=== PATIENT | male | born 1970 | race Hispanic/Latino ===

== ENCOUNTER 2018-08-11 17:02 | Emergency (ER) | payer OTHER ==
[2018-08-11] MEDS ORDERED: KETOROLAC TROMETHAMINE 30MG/ML ONE (17:38)
== END 2018-08-11 19:09 | disposition home or self-care (01) ==
LOC: EDH 17:02
DX: M25.561 Pain in right knee (principal); I10 Essential (primary) hypertension
CPT/HCPCS: 73562; 93971; 96372; 99284; J1885

== ENCOUNTER 2021-12-30 09:33 | Day surgery (SDC) | payer OTHER ==
[2021-12-29 09:57] LABS: BASOPHILS % (AUTO) 0.8 % (0.0-5.0); LYMPHOCYTES % (AUTO) 34.8 % (21.0-51.0); MEAN CORPUSCULAR HEMOGLOBIN 29.1 pg (27.0-33.0); MEAN CORPUSCULAR VOLUME 88.4 fL (79-99); MONOCYTES % (AUTO) 13.4 % (3.0-13.0); NEUTROPHILS % (AUTO) 47.8 % (40.0-77.0); PLATELET COUNT (AUTO) 223 K/uL (130-400); RED BLOOD CELL COUNT(AUTO) 4.98 MIL/uL (4.50-6.20); RED CELL DISTRIBUTION WIDTH 14.1 % (11.0-15.5); WHITE BLOOD COUNT (AUTO) 5.3 K/uL (4.8-10.8)
[2021-12-29 10:05] LABS: POTASSIUM 3.7 mmol/L (3.5-5.1)
[2021-12-29 12:53] VITALS: BP 176/87
[~2021-12-30] VITALS: Ht 170.2 cm; Wt 130.0 kg
[2021-12-30] VITALS (17 sets, daily range): BP systolic 138–172; BP diastolic 77–101
[~2021-12-30 09:33] MED LIST: ACET325T51 PO; AEC81 PO; ASCO500C18 PO; CEFAZOLIN SODIUM 3 GM in DEXTROSE 5%-WATER 100 ML IVP SCH; IBUP-2077 PO; LISI20TA24 PO
[2021-12-30] MEDS ORDERED: CEFAZOLIN SODIUM 1 GM VIAL ONE ×2 (10:10→11:52)
[2021-12-30] MEDS ORDERED: 0.9%NACL 1000ML 1,000 ML IV ONE (10:10)
[2021-12-30] MEDS ORDERED: PROPOFOL 10 MG/ML 20ML VIAL IV ONE ×2 (11:53→14:45)
[2021-12-30] MEDS ORDERED: LIDOCAINE PF 100MG/5ML (2%) SYRINGE 5ML ONE (11:53)
[2021-12-30] MEDS ORDERED: NEOSTIGMINE 5MG/5ML SYR IV ONE (11:53)
[2021-12-30] MEDS ORDERED: MIDAZOLAM HCL 1 MG/ML 2ML VIAL ONE (11:53)
[2021-12-30] MEDS ORDERED: SUCCINYLCHOLINE 200MG/10ML SYR ONE (11:53)
[2021-12-30] MEDS ORDERED: GLYCOPYRROLATE 1 MG/5 ML SYRINGE ONE (11:53)
[2021-12-30] MEDS ORDERED: FENTANYL CITRATE PF 50 MCG/1 ML 2ML VIAL ONE (11:54)
[2021-12-30] MEDS ORDERED: ROCURONIUM 10MG/1ML SYR 10 MG/ML ML ONE (12:31)
[2021-12-30] MEDS ORDERED: ONDANSETRON 4MG INJ ONE ×2 (14:10→15:32)
[2021-12-30] MEDS ORDERED: IBUP-2077 PO (14:31)
[2021-12-30] MEDS ORDERED: HYDR-4060 PO (14:31)
[2021-12-30] MEDS ORDERED: CEPH500B PO (14:31)
[2021-12-30] MEDS ORDERED: KETOROLAC 30MG VIAL (30MG/ML) ONE (15:33)
[2021-12-30] MEDS ORDERED: MEPERIDINE-PF 25 MG/ML SYG ONE (15:33)
== END 2021-12-30 17:00 | disposition home or self-care (01) ==
LOC: DAH 09:33
PROVIDERS: ATTEND Orthopaedic Surgery
DX: S46.012A Strain of muscle(s) and tendon(s) of the rotator cuff of left shoulder, initial encounter (principal); M25.512 Pain in left shoulder; I10 Essential (primary) hypertension; G47.30 Sleep apnea, unspecified; K21.9 Gastro-esophageal reflux disease without esophagitis; M19.90 Unspecified osteoarthritis, unspecified site; E66.9 Obesity, unspecified; E11.9 Type 2 diabetes mellitus without complications; Z79.01 Long term (current) use of anticoagulants; Z79.899 Other long term (current) drug therapy; Z79.82 Long term (current) use of aspirin; Z98.890 Other specified postprocedural states; Z87.891 Personal history of nicotine dependence; Z82.49 Family history of ischemic heart disease and other diseases of the circulatory system; Z83.3 Family history of diabetes mellitus; X58.XXXA Exposure to other specified factors, initial encounter; Y93.89 Activity, other specified; Y92.89 Other specified places as the place of occurrence of the external cause; Z68.41 Body mass index [BMI] 40.0-44.9, adult
CPT/HCPCS: 23130; 23410; 36415; 64415; 76942; 80048; 82948 ×2; 85025; 87635; A4215; A4221; A4222; A4223; A4565; A4600; A4657; A4663; A5120; A6204; C1713 ×2; C9803; G0168; J0330; J0690 ×2; J1885; J2001; J2175; J2250; J2405 ×2; J2704 ×2; J2710; J3010; J3490; J7030; J7120; J7060

== ENCOUNTER 2024-09-13 17:11 | Emergency (ER) | payer OTHER ==
[~2024-09-13] VITALS: Ht 170.2 cm; Wt 117.9 kg
[~2024-09-13 17:11] MED LIST changes: +ACET-3859 PO; -ACET325T51 PO; -CEFAZOLIN SODIUM 3 GM in DEXTROSE 5%-WATER 100 ML IVP SCH; +CEPH500B PO; +HYDR-4060 PO
[2024-09-13] MEDS: acetaMINOPHEN 500 MG TABLET PO SCH (17:19)
--- NOTE | 2024-09-13 17:31 | ERN ---
ED Note History of Present Illness Stated Complaint: FEVER,BODY ACHES Chief Complaint: Fever Time Seen by MD: 17:11 Time Seen by Midlevel: 17:11 Dictation: 54-year-old male who presents ED for evaluation of flu-like symptoms onset 2 days. Patient reports cough, congestion, fever chills, body aches. Patient reports she took ibuprofen earlier today. Reports is also sick with similar symptoms. Denies abdominal pain, nausea, vomiting, chest pain, shortness of breath Allergies: Coded Allergies: No Known Allergies (Verified Allergy, Unknown, 12/29/21) Home Meds Active Scripts Ibuprofen (Ibuprofen 800 mg Tab) 800 Mg Tab, 800 MG PO Q8H PRN for PAIN, #60 TAB 1 Refill Prov:LUIS LYONS MD 12/30/21 Cephalexin Monohydrate (Keflex) 500 Mg Cap, 500 MG PO Q8H for 2 Days, #7 CAP 0 Refills Prov:LUIS LYONS MD 12/30/21 Hydrocodone/Acetaminophen (Hydrocodon-Acetaminophen 5-325) 1 Each Tablet, 1-2 EACH PO Q6HPRN PRN for ACUTE POST-OP PAIN (G89.18), #56 TAB 0 Refills Prov:LUIS LYONS MD 12/30/21 Reported Medications Aspirin (ASPIRIN 81 MG ECTAB) 81 Mg Ectab, 81 MG PO HS, TAB.EC 12/29/21 Ascorbic Acid (Vitamin C) 500 Mg Capsule, 500 MG PO BID, CAP 12/29/21 Lisinopril (Lisinopril) 20 Mg Tablet, 20 MG PO HS, TAB 12/29/21 Acetaminophen (Acetaminophen) 325 Mg Tablet, 650 MG PO AD PRN for PAIN LEVEL 4 TO 6, TAB 12/29/21 Past Medical History Past Medical History: Diabetes-Type II, High Cholesterol, Heart Disease, Hypertension Surgical History: Other Surgical History Other: SHOULDER SURGERY RN Note Reviewed/Agreed w/PFSH: Yes Review of System Dictation Constitutional: Negative for weight loss Eyes: Negative for injury, pain,redness, and discharge ENT: Negative for injury,pain or swelling Cardiovascular: Negative for chest pain, palpitations, and edema Respiratory: Negative for shortness of breath, and wheezing, Abdomen/GI: Negative for abdominal pain, nausea, vomiting, diarrhea, and constipation Back: Negative for injury and pain : Negative for injury, bleeding and discharge MS/Extremity: Negative for injury and deformity Skin: Negative for rash, and discoloration Neuro: Negative for headache, weakness, numbness, tingling, and seizure Psych: Negative for suicide ideation, homicidal ideation, and hallucinations Review of Systems: was completed Initial Vital Sign VS Vital Signs Date Time Temp Pulse Resp B/P (MAP) Pulse Ox O2 Delivery O2 Flow Rate FiO2 09/13/24 17:16 103.1 118 20 149/96 98 Room Air 0 09/13/24 17:27 21 Physical Exam Dictation General: awake, alert, NAD Head/Face: Normocephalic, atraumatic Eyes: PERRL, EOMI, vision at baseline ENT: oral cavity clear, TMs clear, no signs of infection Neck: Trachea midline, supple, no nuchal rigidity Cardiovascular: RRR, normal S1/S2, No MRGs, no JVD Respiratory: CTAB, no respiratory distress, No rales or wheezes Abdomen: Soft, non-tender, non-distended, normal bowel sounds, no guarding or rebound. Skin: Warm, dry, normal turgor, no rash MS/Extremity: Pulses equal, no cyanosis, neurovascular intact, FROM Neuro: COAx4, GCS 15, strength 5/5, CN 2-12 intact, normal cerebellar exam, normal gait, Psych: Normal behavior, mood, and affect normal Results (Laboratory/Radiology) Laboratory/Radiology Laboratory Tests Test 09/13/24 17:20 Influenza Type A Antigen Positive For Type A Influenza Type B Antigen Negative For Type B SARS-CoV-2 Antigen (Rapid) PRESUMPTIVE NEGATIVE Group A Streptococcus Rapid negative (NEGATIVE) Labs Reviewed?: Yes X-RAY Comment: PATIENT: NEYDA CHUNG MR#: [id number] : 1970 SEX: M AGE: 54 LOCATION: [facility] ORDER 17 STATUS: [facility] REPORT#: [id number] SERVICE 16 REASON: cough ORDERING PHYSICIAN: ROVERTO FINNEGAN PROCEDURE: CXR1VW - CHEST 1VW PORTABLE CHEST RADIOGRAPH INDICATION: cough COMPARISON: None FINDINGS: Heart size is normal. The pulmonary vascularity and deborah appear normal. Linear opacities at the lung bases without consolidation. No significant pleural effusion noted. No pneumothorax detected. IMPRESSION: Minimal bibasilar scarring and/or atelectasis. DICTATED BY: CHAITANYA SHEARER MD DATE: 09/13/241752 ELECTRONICALLY SIGNED BY: CHAITANYA SHEARER MD DATE: 09/13/241758 ED Course ED Course Orders Procedure Category Date Status Time Covid19 (Sars Antigen LAB 09/13/24 Complete Rapid) 17:17 Influenza Type A & B, LAB 09/13/24 Complete Rapid 17:17 Rapid (Group A Strep) LAB 09/13/24 Complete 17:17 Chest 1vw RAD 09/13/24 Resulted 17:17 Acetaminophen 500mg PHA 09/13/24 In Process Tab (Tylenol 500mg T 17:19 Current Medications Medications (Trade) Dose Ordered Sig/Jj Route PRN Reason Start Time Stop Time Status Last Admin Dose Admin Acetaminophen (TYLenol 500MG TAB) 500 mg ONCE PO 09/13/24 17:19 09/13/24 22:30 Vital Signs Date Time Temp Pulse Resp B/P (MAP) Pulse Ox O2 Delivery O2 Flow Rate FiO2 09/13/24 17:27 102.7 80 20 134/88 98 Room Air* 0 21 09/13/24 17:16 103.1 118 20 149/96 98 Room Air 0 Medical Decision Making MDM MDM: Differential diagnosis: Viral URI, COVID-19, influenza, short pharyngitis, pneumonia Rationale: Tests considered and ordered secondary to shared decision making include: Previous outside records reviewed: Old ER visits. Medications-Per medication reconciliation Need for hospitalization: Patient does not meet criteria for hospitalization. Need for emergency major/minor surgery: No Patient's prior external medical records from other ER visits were reviewed by me as indicated. Prior testing and results from previous visits were reviewed. Prior tests were taken into account with medical decision making and resource utilization, independent historian/historians were used to obtain complete medical history. I independently interpreted the test that were performed, results were reviewed by me and considered findings on radiology if ordered. Medical management and examination interpretation discussions were had by me with other qualified healthcare professionals as indicated for the patient's care. Physical examination lungs are clear to auscultation no wheezing, rales, or rhonchi. Patient with a fever here so was given dose of acetaminophen here in the ER. Patient was layered up in multiple jackets prior to getting vital signs. Oropharynx clear. Patient has not for influenza a and negative for COVID and strep. Chest x-ray did not show any evidence of pneumonia or any other acute findings. Patient will be discharged home with Tamiflu and symptomatic treatment. Recommended follow up with PCP. Patient verbalized understanding, agree with plan, and all questions were answered at this time. DX & DISP Disposition: Discharge Departure Impression: Primary Impression: Influenza A Condition: Stable Scripts D-Methorphan Hb/P-Epd HCl/Bpm (Bromfed Dm Cough Syrup) 2 Mg-30 Mg-10 Mg/5 Ml Syrup 10 ML PO Q4PRN for cough, #120 ML Prov: ROVERTO FINNEGAN 09/13/24 Acetaminophen (Acetaminophen) 500 Mg Tablet 1 TAB PO Q6HPRN PRN for pain or fever for 15 Days, #60 TAB 0 Refills Prov: ROVERTO FINNEGAN 09/13/24 Oseltamivir Phosphate (Tamiflu) 75 Mg Cap 75 MG PO BID for 5 Days, #10 CAP Prov: ROVERTO FINNEGAN 09/13/24 Additional Instructions: DISCHARGE HOME. REST. FOLLOW UP WITH PRIMARY CARE DRTete IN 24 HOURS. RETURN TO THE ER FOR ANY ACUTE CHANGE. PATIENT WAS ALSO ADVISED TO FOLLOW-UP WITH PRIMARY CARE PHYSICIAN IN 1 TO 2 DAYS FOR CONTINUED MONITORING. ALL INSTRUCTIONS WERE GIVEN TO LAYMANS TERM AND PATIENT AGREEABLE TO DISCHARGE AND PROPER FOLLOW-UP. Referrals: SELF,REFERRAL (PCP) I have reviewed the case, and I agree with, Diagnosis and Plan ROVERTO FINNEGAN Sep 13, 2024 17:31
[2024-09-13 17:39] LABS: RAPID GROUP A STREP negative (NEGATIVE)
--- NOTE | 2024-09-13 17:43 | NUR ---
PATIENT REFUSED ACETAMINOPHEN ORDER STATING THAT HE JUST TOOK ACETAMINOPHEN 30MIN PHARMACY COORDINATOR ED DOCTOR MADE AWARE
[2024-09-13 17:49] LABS: INFLUENZA TYPE B Negative For Type B (NEGATIVE)
[2024-09-13 17:55] LABS: COVID19 (SARS ANTIGEN RAPID) PRESUMPTIVE NEGATIVE (NEGATIVE)
[2024-09-13 17:57] LABS: INFLUENZA TYPE A Positive For Type A (NEGATIVE)
--- NOTE | 2024-09-13 17:59 | HMCIMG ---
PORTABLE CHEST RADIOGRAPH INDICATION: cough COMPARISON: None FINDINGS: Heart size is normal. The pulmonary vascularity and deborah appear normal. Linear opacities at the lung bases without consolidation. No significant pleural effusion noted. No pneumothorax detected. IMPRESSION: Minimal bibasilar scarring and/or atelectasis.
[2024-09-13] MEDS ORDERED: ACET-66 PO (18:06)
[2024-09-13] MEDS ORDERED: OSEL75 PO (18:06)
[2024-09-13] MEDS ORDERED: BROM118S48 PO (18:06)
[2024-09-13 18:42] VITALS: BP 128/80; PULSE 82; RESP 20; TEMP 99.1; O2SAT 98
== END 2024-09-13 18:44 | disposition home or self-care (01) ==
LOC: EDH 17:11
DX: J10.1 Influenza due to other identified influenza virus with other respiratory manifestations (principal); E11.9 Type 2 diabetes mellitus without complications; E78.00 Pure hypercholesterolemia, unspecified; I11.9 Hypertensive heart disease without heart failure; Z79.82 Long term (current) use of aspirin; Z20.822 Contact with and (suspected) exposure to COVID-19
CPT/HCPCS: 71045; 87426; 87804; 87880; 99284